=== PATIENT | female | born 2000 ===

== ENCOUNTER 2024-05-17 10:09 | Emergency (ER) | payer SELFPAY ==
[~2024-05-17] VITALS: Ht 162.6 cm; Wt 81.8 kg
[2024-05-17 10:25] VITALS: BP 138/90; PULSE 120; RESP 18; TEMP 98.1
== END 2024-05-17 13:25 | disposition left against medical advice (07) ==
LOC: EMS 10:09
DX: Z53.21 Procedure and treatment not carried out due to patient leaving prior to being seen by health care provider (principal)